=== PATIENT | male | born 1960 | race Caucasian/White ===

== ENCOUNTER → 2019-03-31 | Outpatient (CLI) | payer BC, OTHER ==
[2019-03-31 08:58] LABS: CREATININE 1.1 mg/dL (0.7-1.3); POTASSIUM 4.5 mmol/L (3.5-5.1)
== END ==
LOC: CAT 07:38
PROVIDERS: Internal Medicine Cardiovascular Disease
DX: I35.0 Nonrheumatic aortic (valve) stenosis (principal); I25.10 Atherosclerotic heart disease of native coronary artery without angina pectoris; I71.4 Abdominal aortic aneurysm, without rupture; I71.2 Thoracic aortic aneurysm, without rupture

== ENCOUNTER → 2019-09-16 | Outpatient (CLI) | payer BC, OTHER ==
[~2019-09-16] VITALS: Ht 182.9 cm; Wt 87.5 kg
[~2019-09-16] MED LIST: LIPITOR40 MG PO
[2019-09-16 07:46] VITALS: BP 127/73
[2019-09-16 07:57] LABS: HEMATOCRIT 44.2 % (42.0-52.0); HEMOGLOBIN 15.4 gm/dL (14.0-18.0); MCH 32.2 pg (26.0-34.0); MCHC 34.7 g/dL (28.0-37.0); MCV 92.6 fL (80.0-100.0); RBC 4.78 mil/uL (4.50-6.00); RDW 13.1 % (10.5-14.5); WBC 7.9 thou/uL (4.0-11.0)
[2019-09-16 08:18] LABS: CREATININE 1.1 mg/dL (0.7-1.3); POTASSIUM 4.2 mmol/L (3.5-5.1)
--- NOTE | 2019-09-16 12:44 | TEE ---
[facility] [place] [address] TRANSESOPHAGEAL ECHOCARDIOGRAM Name: PAMELA MIKE Room #: REG [facility]#: [id number] Admission: 09/16/19 Attend Phys: Willie Munoz MD, Discharge: Date of : 62 Report #: [id number] THIS REPORT FOR: cc: Jesus Goldsmith MD, Neal A. MD Lundgren, Craig H. MD [facility] ~ APPROVED REPORT Study performed: 09/16/2019 08:06:51 EXAM: Comprehensive 2D, Doppler, and color-flow Echocardiogram Patient Location: Out-Patient Room #: 9 Status: routine BSA: 2.10 HR: 90 bpm BP: 127/73 mmHg Rhythm: NSR Other Information Study Quality: Excellent Indications Aortic Valve Disease Echo Enhancing Agent Indication: Rule out Shunt Agent(s) / Amount(s) Used: Agitated Saline 7 cc Procedure After obtaining informed consent, patient underwent transesophageal echo in the [employer] Holding. Type of Sedation : Conscious Sedation Sedation was administered by Nurse. Sedation was achieved intravenously with: Versed (6 mg) Fentanyl (150 mcg) Transesophageal probe was inserted and advanced into esophagus without difficulty by Joaquin Longo MD. Echo enhancement indication: R/O Septal defect. Echo enhancement agent administered: Agitated Saline The KRISTOFER was performed without complications. Throughout the procedure, the blood pressure, pulse oximetry, cardiac rhythm, and rate were monitored. [facility] [address] [place] [address] TRANSESOPHAGEAL ECHOCARDIOGRAM Name: PAMELA MIKE Room #: REG [facility]#: [id number] Admission: 09/16/19 Attend Phys: Willie Munoz, Discharge: Date of : 62 Report #: [id number] The patient tolerated the procedure without adverse effects. Recovery from conscious sedation was uneventful and vital signs were stable. Left Ventricle The left ventricle is normal size. There is normal LV segmental wall motion. There is normal left ventricular wall thickness. The left ventricular systolic function is normal. The left ventricular ejection fraction is within the normal range. LVEF is 55-60%. Right Ventricle The right ventricle is normal size. The right ventricular systolic function is normal. Atria The left atrium size is normal. No thrombus is visualized in the left atrium or appendage. No shunting by contrast bubble injection The right atrium size is normal. Aortic Valve Aortic valve is bicuspid, heavily calcified, severely stenotic. No aortic regurgitation is present. Mitral Valve The mitral valve is normal in structure. Mild mitral regurgitation. No evidence of mitral valve stenosis. Tricuspid Valve The tricuspid valve is normal in structure. There is no tricuspid valve regurgitation noted. Pulmonic Valve The pulmonary valve is normal in structure. There is no pulmonic valvular regurgitation. Great Vessels Aortic root is dilated measiring 4.3 cm IVC is normal in size and collapses >50% with inspiration. Pericardium There is no pericardial effusion. <Conclusion> The left ventricular systolic function is normal. There is normal LV segmental wall motion. LVEF is 55-60%. [facility] [address] [place] [address] TRANSESOPHAGEAL ECHOCARDIOGRAM Name: PAMELA MIKE Room #: REG [facility]#: [id number] Admission: 09/16/19 Attend Phys: Willie Munoz, Discharge: Date of : 62 Report #: [id number] No shunting by contrast bubble injection Both atria are normal in size. No thrombus is visualized in the left atrium or appendage. Aortic valve is bicuspid, heavily calcified, severely stenotic. No aortic regurgitation The mitral valve is normal in structure. Mild mitral regurgitation. 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 <ELECTRONICALLY SIGNED> By: Joaquin Longo MD, [facility] 09/16/19 124 124 41 Joaquin Longo MD, FAC /INF
--- NOTE | 2019-09-16 17:34 | CATHLAB ---
[facility] [place] [address] INVASIVE PROCEDURE REPORT Name: PAMELA MIKE Room #: REG [facility]#: [id number] Admission: 09/16/19 Attend Phys: Willie Munoz MD, Discharge: Date of : 62 Report #: [id number] THIS REPORT FOR: cc: Jesus Goldsmith MD, Neal A. MD Mancuso, Gerald M. 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 A Right Heart Catheterization was performed with a 6 Fr. Montebello-Samra catheter and pressure were recorded. Cardiac outputs were obtained by the Thermal Dilution method. A PINNACLE 6FR Sheath #[id number] sheath was inserted into the RFA^. Coronary angiography was performed using coronary diagnostic catheters. The right coronary system was accessed and visualized with a JR4 catheter. The left coronary system was accessed and visualized with a JL4 catheter. Closure device was deployed with a 6 Fr MYNXGRIP 6/7F #[id number]. The patient tolerated the procedure well and there were no complications associated with the procedure. There was no hematoma. ROOT WAS OBTAINED WITH A PIGTAIL CATHETER Intraoperative Conscious Sedation [facility] [place] [address] INVASIVE PROCEDURE REPORT Name: PAMELA MIKE Room #: REG [facility]#: [id number] Admission: 09/16/19 Attend Phys: Willie Munoz, Discharge: Date of : 62 Report #: [id number] Sedation start time: 900 Case end Time: 948 Fentanyl 150 mcg Versed 2 mg Fluoro Time: 5.45 minutes Dose: DAP 5185.80 cGycm2 452 mGy Contrast Type and Amount: Omnipaque 90 ml Hemodynamics The right atrial mean pressure is 24 mmHg. The right ventricular pressure is 42/18 mmHg. The pulmonary artery pressure is 52/33 mmHg with a mean of 41 mmHg. The mean pulmonary capillary wedge pressure is 32 mmHg. The aortic pressure is 119/78 mmHg with a mean of 98 mmHg. The cardiac output using thermo method is 4.30 L/min. Conclusion 1. Successful right heart catheterization with mild to moderate elevation pulmonary pressures. Cardiac output by thermodilution. See above hemodynamics. #2 supravalvular aortogram revealing 1+ aortic insufficiency with moderate aortic dilatation valve was not crossed secondary to severe aortic stenosis. #3 left main mild disease giving rise to LAD and circumflex #4 LAD is a type I and stops short of the apex. Is relatively small and diffusely diseased #5 circumflex OM nondominant with an eccentric 60% ostial lesion this is a small nondominant system. #6 large dominant right coronary artery with an eccentric 30 to 40% proximal lesion large distribution of the PDA ALBERTO no occlusive disease. Recommendations and plan: Continue aggressive risk factor modification. Patient also had KRISTOFER performed today. See that report. Will be evaluated for valve replacement at [facility]. Patient hemodynamically stable asymptomatic. Will limit fluid intake due to moderate elevation of pulmonary pressures. Patient remains asymptomatic. Aortic valve replacement indicated with noninvasive findings of severe aortic stenosis bicuspid aortic valve. <ELECTRONICALLY SIGNED> By: Willie Munoz MD, FACC 09/16/19 1733 1733 173 Willie Munoz MD, FACC /INF
--- NOTE | 2019-09-17 11:48 | EKG ---
[facility] [place] [address] ELECTROCARDIOGRAM REPORT Name: PAMELA MIKE Room #: REG [facility]#: [id number] Admission: 09/16/19 Attend Phys: Willie Munoz MD, Discharge: Date of : 62 Report #: [id number] THIS REPORT FOR: cc: Jesus Goldsmith MD, Neal A. MD Couchonnal, Luis F. MD ~ THIS REPORT FOR: //name// [facility] Test Date: 2019-09-16 Test Time: 08:02:24 Pat Name: PAMELA MIKE Department: Room: Gender: Principal Software Architect: Maren PIERCE : 1960 Requested By: Willie Munoz Order Number: [id number] MD: Geoff Pemberton Measurements Intervals [place] Rate: 74 P: 33 HI: 203 QRS: 0 QRSD: 79 T: 27 QT: 370 QTc: 411 Interpretive Statements Sinus rhythm Borderline prolonged HI interval Baseline wander in lead(s) III No previous ECG available for comparison Electronically Signed On 09-17-2019 11:47:21 CDT by Geoff Pemberton [email or web address] <ELECTRONICALLY SIGNED> By: Geoff Pemberton MD 09/17/19 [phone] Geoff Pemberton MD /EPI
== END | disposition home or self-care (01) ==
LOC: CATH 07:00
PROVIDERS: ATTEND Internal Medicine Cardiovascular Disease
DX: R07.9 Chest pain, unspecified (principal); I25.10 Atherosclerotic heart disease of native coronary artery without angina pectoris; I35.2 Nonrheumatic aortic (valve) stenosis with insufficiency; Z98.890 Other specified postprocedural states; Z79.899 Other long term (current) drug therapy; Z11.59 Encounter for screening for other viral diseases

== ENCOUNTER → 2021-02-12 | Outpatient (CLI) | payer BC, OTHER | LOC: SJCVCIMAG 02-08 13:48 | PROVIDERS: ATTEND Internal Medicine Cardiovascular Disease | DX: I77.810 Thoracic aortic ectasia (principal); Q23.1 Congenital insufficiency of aortic valve; Z95.3 Presence of xenogenic heart valve ==